=== PATIENT | male | born 1945 | race Caucasian/White ===

== ENCOUNTER 2016-03-07 14:09 | Emergency (ER) | payer MEDICARE, BC ==
[~2016-03-07] VITALS: Ht 177.8 cm; Wt 85.0 kg
[2016-03-07 14:11] VITALS: BP 142/85; PULSE 38; PULSE 65; RESP 16; TEMP 97.9; O2SAT 95
[2016-03-07] MEDS ORDERED: DICY20TA10 PO (14:51)
[2016-03-07] MEDS ORDERED: PANT40TA3 PO (14:51)
[2016-03-07] MEDS ORDERED: OMEG340C (14:51)
[2016-03-07] MEDS ORDERED: LORA1TAB12 PO (14:51)
[2016-03-07] MEDS ORDERED: SILD20TA11 PO (14:51)
[2016-03-07] MEDS ORDERED: TRAM50TA PO (14:51)
[2016-03-07] MEDS ORDERED: NEXI40CA PO (14:51)
[2016-03-07] MEDS ORDERED: CHLO5CAP37 PO (14:51)
[2016-03-07] MEDS ORDERED: MOBI15TA PO (14:51)
[2016-03-07] MEDS ORDERED: VENTAER INH (14:51)
[2016-03-07] MEDS ORDERED: HYOS0.128 PO (14:51)
[2016-03-07] MEDS ORDERED: AMOX875T PO (14:53)
[2016-03-07 15:00] VITALS: O2SAT 98
[2016-03-07] MEDS ORDERED: MORPHINE SULFATE 4 MG/ML INJ IV PUSH ONE (15:00)
[2016-03-07] MEDS ORDERED: SODIUM CHLORIDE 0.9% FLUSH 5 ML FLUSH IVF PRN (15:00)
[2016-03-07 15:01] VITALS: BP 156/76; PULSE 58; RESP 18; O2SAT 95
--- NOTE | 2016-03-07 15:35 | RADRPT ---
EXAM DATE/TIME: 03/07/2016 15:12 [place] COMPARISON: No previous studies available for comparison. INDICATIONS : Chest Pain. MEDICAL HISTORY : None. SURGICAL HISTORY : None. ENCOUNTER: Initial ACUITY: 1 day PAIN SCORE: 7/10 LOCATION: Bilateral chest FINDINGS: A single view of the chest demonstrates the lungs to be symmetrically aerated without evidence of mas s, infiltrate or effusion. The cardiomediastinal contours are unremarkable. Osseous structures are intact. CONCLUSION: 1. No acute cardiopulmonary findings identified. Bossman Mandel MD on March 07, 2016 at 15:33 Board Certified Radiologist. This report was verified electronically.
[2016-03-07 16:03] LABS: AUTOMATED NEUTROPHIL # 6.6 TH/MM3 (1.8-7.7); BASOPHIL # 0.1 TH/MM3 (0-0.2); BASOPHIL % 0.8 % (0.0-2.0); EOSINOPHIL # 0.2 TH/MM3 (0-0.4); EOSINOPHIL % 2.9 % (0.0-4.0); HEMO FLAGS DIFF FINAL; LYMPH % 13.8 % (9.0-44.0); LYMPHOCYTE # 1.2 TH/MM3 (1.0-4.8); MEAN CELL VOLUME 86.4 FL (80.0-100.0); MEAN CORPUSCULAR HEMOGLOBIN 29.5 PG (27.0-34.0); MEAN CORPUSCULAR HGB CONC 34.2 % (32.0-36.0); MONO % 5.6 % (0.0-8.0); NEUT % 76.9 % (16.0-70.0); PLATELET COUNT 256 TH/MM3 (150-450); RED BLOOD COUNT 5.21 MIL/MM3 (4.50-5.90); RED CELL DISTRIBUTION WIDTH 13.2 % (11.6-17.2); WHITE BLOOD COUNT 8.5 TH/MM3 (4.0-11.0)
[2016-03-07 16:06] LABS: APTT (PATIENT) 26.6 SEC (24.3-30.1); PROTHROMBIN TIME - PATIENT 10.6 SEC (9.8-11.6)
[2016-03-07 16:24] LABS: ALKALINE PHOSPHATASE 79 U/L (45-117); TOTAL BILIRUBIN ADULT 0.3 MG/DL (0.2-1.0)
--- NOTE | 2016-03-07 16:26 | PD ---
HPI Chief Complaint: Chest Pain Time Seen by Provider: 14:42 Travel History International Travel<30 days: No Contact w/Intl Traveler<30days: No Traveled to known affect area: No History of Present Illness HPI This is a 70-year-old male who is otherwise healthy who presents to the emergency department with chest discomfort that starts in the left side of his chest radiating to his neck and shoulder as well as his back, constant and worsening over the past 2 days associated with some shortness of breath. He does say he felt a little bit clammy earlier today. He denies any nausea. He says his been having a lot of pain in his neck and he also has chronic abdominal problems and initially was attributing it to that that his pain seemed to be worsening today which prompted him to come to the emergency department. He denies any history of hypertension, hyperlipidemia, diabetes, smoking or family history of heart disease. He does say he had a negative stress test 2 years ago. PFSH Past Medical History Hx Anticoagulant Therapy: Yes (ASA) Arthritis: Yes Anxiety: Yes GERD: Yes Musculoskeletal: Yes (BACK PAIN) Pneumonia: Yes Past Surgical History Appendectomy: Yes Tonsillectomy: Yes Other Surgery: Yes (SKIN GRAFTS, SCOPE FOR BOWEL OBSTRUCTION) Social History Alcohol Use: No Tobacco Use: No Substance Use: No Allergies-Medications (Allergen,Severity, Reaction): Coded Allergies: No Known Allergies (Unverified , 03/07/16) Reported Meds & Prescriptions Reported Meds & Active Scripts Active Reported Amoxicillin 875 Mg Tab 875 Mg PO BID Ventolin Hfa 18 GM Inh (Albuterol Sulfate) 90 Mcg/Act Aer 1 Puff INH Q4H PRN Mobic (Meloxicam) 15 Mg Tab 15 Mg PO DAILY Hyoscyamine (Hyoscyamine Sulfate) 0.125 Mg Tab 0.125 Mg PO Q4H Sildenafil 20 Mg Tab 20 Mg PO DAILY [place] 3 340 mg ([place]-3 Fatty Acids) 1 Cap Cap Nexium (Esomeprazole DR) 40 Mg Capdr 40 Mg PO DAILY Dicyclomine (Dicyclomine HCl) 20 Mg Tab 20 Mg PO Q6HR PRN Tramadol (Tramadol HCl) 50 Mg Tab 50 Mg PO Q6H PRN Lorazepam 1 Mg Tab 1 Mg PO HS PRN Chlordiazepoxide-Clidinium 5-2.5 Mg Cap 1 Cap PO QID Pantoprazole (Pantoprazole Sodium) 40 Mg Tab 40 Mg PO DAILY Review of Systems Except as stated in HPI: all other systems reviewed are Neg Physical Exam Narrative GENERAL:Well appearing, no acute distress SKIN: Warm and dry. HEAD: Atraumatic. Normocephalic. EYES: Pupils equal and round. No injection or drainage. ENT: Moist mucous membranes NECK: Trachea midline. CARDIOVASCULAR: Regular rate and rhythm. No murmur appreciated. RESPIRATORY: Clear to auscultation. Breath sounds equal bilaterally. GASTROINTESTINAL: Abdomen soft, non-tender, nondistended. MUSCULOSKELETAL: No obvious deformities. NEUROLOGICAL: Awake and alert. No obvious cranial nerve deficits. Moving all extremities. PSYCHIATRIC: Appropriate mood and affect; insight and judgment normal. Data Data Last Documented VS Vital Signs Date Time Temp Pulse Resp B/P Pulse Ox O2 Delivery O2 Flow Rate FiO2 03/07/16 15:01 58 18 156/76 95 Nasal Cannula 2 03/07/16 14:11 97.9 Orders Electrocardiogram (03/07/16 ) Complete Blood Count With Diff (03/07/16 14:51) Magnesium (Mg) (03/07/16 14:51) Prothrombin Time / Inr (Pt) (03/07/16 14:51) Act Partial Throm Time (Ptt) (03/07/16 14:51) Troponin I (03/07/16 14:51) Chest, Single Ap (03/07/16 14:51) Ecg Monitoring (03/07/16 14:51) Bilateral Bp Monitoring (03/07/16 14:51) Iv Access Insert/Monitor (03/07/16 14:51) Oximetry (03/07/16 14:51) Oxygen Administration (03/07/16 14:51) Morphine Inj (Morphine Inj) (03/07/16 15:00) Sodium Chloride 0.9% Flush (Ns Flush) (03/07/16 15:00) Comprehensive Metabolic Panel (03/07/16 14:51) Lipase (03/07/16 14:51) Electrocardiogram (03/07/16 ) Admit Order (Ed Use Only) (03/07/16 16:30) Labs Laboratory Tests Test 03/07/16 15:23 White Blood Count 8.5 TH/MM3 Red Blood Count 5.21 MIL/MM3 Hemoglobin 15.4 GM/DL Hematocrit 45.0 % Mean Corpuscular Volume 86.4 FL Mean Corpuscular Hemoglobin 29.5 PG Mean Corpuscular Hemoglobin 34.2 % Concent Red Cell Distribution Width 13.2 % Platelet Count 256 TH/MM3 Mean Platelet Volume 8.8 FL Neutrophils (%) (Auto) 76.9 % Lymphocytes (%) (Auto) 13.8 % Monocytes (%) (Auto) 5.6 % Eosinophils (%) (Auto) 2.9 % Basophils (%) (Auto) 0.8 % Neutrophils # (Auto) 6.6 TH/MM3 Lymphocytes # (Auto) 1.2 TH/MM3 Monocytes # (Auto) 0.5 TH/MM3 Eosinophils # (Auto) 0.2 TH/MM3 Basophils # (Auto) 0.1 TH/MM3 CBC Comment DIFF FINAL Differential Comment Prothrombin Time 10.6 SEC Prothromb Time International 1.0 RATIO Ratio Activated Partial 26.6 SEC Thromboplast Time Sodium Level 137 MEQ/L Potassium Level 4.2 MEQ/L Chloride Level 105 MEQ/L Carbon Dioxide Level 26.8 MEQ/L Anion Gap 5 MEQ/L Blood Urea Nitrogen 18 MG/DL Creatinine 1.22 MG/DL Estimat Glomerular Filtration 59 ML/MIN Rate Random Glucose 92 MG/DL Calcium Level 8.8 MG/DL Magnesium Level 2.1 MG/DL Total Bilirubin 0.3 MG/DL Aspartate Amino Transf 21 U/L (AST/SGOT) Alanine Aminotransferase 25 U/L (ALT/SGPT) Alkaline Phosphatase 79 U/L Troponin I LESS THAN 0.02 NG/ML Total Protein 7.5 GM/DL Albumin 3.8 GM/DL Lipase 150 U/L [facility] Medical Decision Making Medical Screen Exam Complete: Yes Emergency Medical Condition: Yes Interpretation(s) EKG: Right bundle branch block, ST depressions in the anterior leads V2 and V3 with normal-appearing posterior leads. No leukocytosis Electrolytes within normal limits Troponin normal Lipase 150 Coags normal Chest x-ray: No acute process Differential Diagnosis Cervical radiculopathy, myocardial infarction, angina, acute coronary syndrome, pancreatitis, gastritis Narrative Course This is a 70-year-old male who presents to the emergency department with left- sided chest pain that radiates to the neck and arm associated with some clamminess and shortness of breath. He has a history of stomach problems and he also has been having trouble in his neck and has been having trouble sleeping due to musculoskeletal pain in his neck for several weeks. He is placed on a monitor and an IV was established. EKG demonstrates a right bundle- branch block which is old as well as some ST depression in V2 and V3. His symptoms of the present for 2 days. Patient was listed monitor and an IV was established. Labs are obtained which were reassuring. Chest x-ray was reassuring. I spoke to the patient at length. His ST depressions on EKG concern me as well as his description of symptoms and his age. I do think he is at risk for acute coronary syndrome. The patient really thinks this is related to cervical radiculopathy and his stomach. He received a GI cocktail and he feels much better. I recommended that he stay in the hospital for serial cardiac enzymes and risk stratification but he wants to leave. He'll return to the emergency department if his symptoms worsen and he promises to follow-up as soon as possible with his primary care physician when he returns home. I don't think I can keep this patient against his will and I think he has decision-making capacity. Patient will be discharged home. Diagnosis Primary Impression: Chest pain Qualified Code: R07.9 - Chest pain, unspecified type Patient Instructions: General Instructions Additional Instructions: We are concerned about some of your EKG findings and the description of your symptoms. We've not completely ruled out heart attack or heart disease. If you develop severe chest pain, shortness of breath, sweating, lightheadedness, dizziness or difficulty breathing return to the emergency department immediately or call 911. Follow-up with your primary care physician as soon as possible. Med/Other Pt SpecificInfo: Prescription(s) given Scripts Cyclobenzaprine (Flexeril)10 Mg Tab10 Mg PO TID #15 TAB Ref 0 Prov:Michelle Robles MD 03/07/16 Disposition: 01 DISCHARGE HOME Condition: Stable Michelle Robles MD Mar 07, 2016 16:26
[2016-03-07 16:45] LABS: ALT (GPT) 25 U/L (12-78); ANION GAP 5 MEQ/L (5-15); AST (GOT) 21 U/L (15-37); BICARBONATE 26.8 MEQ/L (21.0-32.0); BLOOD UREA NITROGEN 18 MG/DL (7-18); CHLORIDE 105 MEQ/L (98-107); GLOMERULAR FILTRATION RATE 59 ML/MIN (>89); MAGNESIUM 2.1 MG/DL (1.5-2.5); POTASSIUM 4.2 MEQ/L (3.5-5.1); SODIUM (NA) 137 MEQ/L (136-145)
[2016-03-07 16:54] VITALS: BP 159/75; PULSE 61; RESP 18; O2SAT 96
[2016-03-07] MEDS ORDERED: ONDANSETRON HCL 4 MG/2 ML VIAL IV PRN (17:15)
[2016-03-07] MEDS ORDERED: ATROPINE/SCOPOLAM/HYOSCYAM/PB ELIXIR 10 ML CUP PO ONE (17:15)
[2016-03-07] MEDS ORDERED: ALUMINUM/MAGNESIUM/SIMETH 30 ML CUP PO ONE (17:15)
[2016-03-07] MEDS ORDERED: LIDOCAINE VISCOUS 2% SOLN 15 ML UDC PO ONE (17:15)
[2016-03-07 17:30] VITALS: BP 148/80; PULSE 67; RESP 18; O2SAT 97
[2016-03-07] MEDS ORDERED: RESP: ALBUTEROL 2.5 MG/3 ML NEB (PRN) NEB (18:00)
[2016-03-07] MEDS ORDERED: ACETAMINOPHEN 500 MG CPLT PO PRN (18:00)
[2016-03-07] MEDS ORDERED: NITROGLYCERIN 0.4 MG SL 25 TABS/BTL SL PRN (18:00)
[2016-03-07] MEDS ORDERED: CYCL1TAB29 PO (18:23)
[2016-03-07 18:41] VITALS: BP 159/94
[2016-03-07 19:42] LABS: CREATINE KINASE 93 U/L (39-308)
[2016-03-07] MEDS ORDERED: SODIUM CHLORIDE 0.9% FLUSH 5 ML FLUSH IVF SCH (21:00)
--- NOTE | 2016-03-07 22:01 | EKG ---
Date Performed: 03/07/2016 Time Performed: 14:55:20 PTAGE: 70 years EKG: SINUS BRADYCARDIA RIGHT BUNDLE BRANCH BLOCK ABNORMAL ECG NO PREVIOUS TRACING Since previous tracing, no significant change noted DOCTOR: Abraham Calvillo Interpretating Date/Time 03/07/2016 22:00:07
--- NOTE | 2016-03-07 22:03 | EKG ---
Date Performed: 03/07/2016 Time Performed: 14:26:04 PTAGE: 70 years EKG: Sinus rhythm RIGHT BUNDLE BRANCH BLOCK ABNORMAL ECG NO PREVIOUS TRACING DOCTOR: Abraham Calvillo Interpretating Date/Time 03/07/2016 22:03:19
[2016-03-08] MEDS ORDERED: ASPIRIN 325 MG TAB PO SCH (09:00)
== END 2016-03-07 18:59 | disposition home or self-care (01) ==
LOC: NEPE 14:09 → UNDOADMOB 16:32 → NEDA 16:32
DX: R07.89 Other chest pain (principal); R06.02 Shortness of breath; Z79.899 Other long term (current) drug therapy
CPT/HCPCS: 71010; 80053; 82550; 83690; 83735; 84484; 85025; 85610; 85730; 93005; 96374; 99285; J2270